=== PATIENT | male | born 1960 | race Caucasian/White ===

== ENCOUNTER 2017-07-12 15:54 | Emergency (ER) | payer OTHER ==
[~2017-07-12] VITALS: Ht 167.6 cm; Wt 83.0 kg
[~2017-07-12 15:54] MED LIST: ADALAT CC90 MG PO; ADULT LOW DOSE81 MG PO; ATENOLOL 50 MG50 M1 PO; BUSPIRONE HCL10 MG PO; CATAPRES0.2 MG PO; COMBIVENT INH; CYCLOBENZAPRINE10 MG PO; DICLOFENAC SODI75 MG PO; IMDUR 30 MG TAB30 M1 PO; LASIX 20 MG TAB20 MG PO; LISINOPRIL20 MG PO; MICARDIS PO; NITROSTAT0.4 MG SL; NORCO 5-325 TA1 EAC1 PO; NORVASC10 MG PO; PLAVIX 75 MG TA75 M1 PO; POTASSIUM CHLO10 ME1 PO; PREDNISONE 10 M10 MG PO; PROMETHAZINE HC25 M1 PO; SIMVASTATIN40 MG PO; TENORMIN50 MG PO; TOPAMAX 25 MG T25 M1 PO; TRIAMCINOLONE A15 G1 TOP
[2017-07-12] MEDS ORDERED: KEFLEX500 M1 PO (16:32)
[2017-07-12] MEDS ORDERED: CIPROFLOXIN HC2.5 M1 OTIC (16:32)
[2017-07-12] MEDS ORDERED: HYDROCODONE-AP1 EAC6 PO (16:32)
[2017-07-12 17:01] VITALS: BP 174/98
== END 2017-07-12 17:01 | disposition home or self-care (01) ==
LOC: M.ERS 15:54
DX: S05.02XA Injury of conjunctiva and corneal abrasion without foreign body, left eye, initial encounter (principal); I10 Essential (primary) hypertension; E78.00 Pure hypercholesterolemia, unspecified; Z90.49 Acquired absence of other specified parts of digestive tract; I25.2 Old myocardial infarction; Z98.890 Other specified postprocedural states; Z86.73 Personal history of transient ischemic attack (TIA), and cerebral infarction without residual deficits; X58.XXXA Exposure to other specified factors, initial encounter; Y93.89 Activity, other specified; Y92.89 Other specified places as the place of occurrence of the external cause; Y99.8 Other external cause status

== ENCOUNTER 2017-07-26 18:07 | Emergency (ER) | payer OTHER ==
[~2017-07-26] VITALS: Ht 167.6 cm; Wt 81.7 kg
[~2017-07-26 18:07] MED LIST changes: +CIPROFLOXIN HC2.5 M1 OTIC; +HYDROCODONE-AP1 EAC6 PO; +KEFLEX500 M1 PO
[2017-07-26 19:27] VITALS: BP 197/121
== END 2017-07-26 19:29 | disposition home or self-care (01) ==
LOC: M.ERS 18:07
DX: R04.0 Epistaxis (principal); I10 Essential (primary) hypertension; E78.00 Pure hypercholesterolemia, unspecified; I25.2 Old myocardial infarction; Z86.73 Personal history of transient ischemic attack (TIA), and cerebral infarction without residual deficits; Z98.890 Other specified postprocedural states

== ENCOUNTER 2017-08-18 11:52 | Emergency (ER) | payer OTHER ==
[~2017-08-18] VITALS: Ht 167.6 cm; Wt 86.2 kg
[2017-08-18 12:17] LABS: ABSOLUTE BASOPHILS 0.1 thou/uL (0.0-0.2); ABSOLUTE EOSINOPHILS 0.2 thou/uL (0.0-0.7); ABSOLUTE LYMPHOCYTES 1.6 thou/uL (0.8-5.3); ABSOLUTE MONOCYTES 0.4 thou/uL (0.0-1.2); ABSOLUTE NEUTROPHILS 3.6 thou/uL (1.6-8.1); BASOPHILS 1.3 %; HEMOGLOBIN 15.2 gm/dL (14.0-18.0); LYMPHOCYTES 27.6 %; MCH 29.2 pg (26.0-34.0); MCHC 34.5 g/dL (28.0-37.0); MCV 84.6 fL (80.0-100.0); MONOCYTES 6.3 %; MPV 8.7 fl. (7.2-11.1); NUCLEATED RBCS 0 /100WBC; PLATELET COUNT* 182 thou/uL (150-400); POLYS 60.8 %; RDW-CV 14.5 % (10.5-14.5); WBC 5.9 thou/uL (4.0-11.0)
[2017-08-18 12:26] LABS: ANION GAP 8 mmol/L (7-16); BUN 16 mg/dL (7-18); CHLORIDE 101 mmol/L (98-107); CO2 31 mmol/L (21-32); CREATININE 1.8 mg/dL (0.6-1.3); GLUCOSE 129 mg/dL (70-99); SODIUM 140 mmol/L (136-145)
[2017-08-18 12:28] LABS: APTT 29.4 Seconds (25.0-31.3); INR 1.1; PROTIME 10.3 Seconds (9.20-11.50)
[2017-08-18 12:45] LABS: ALBUMIN 3.8 g/dL (3.4-5.0); ALKALINE PHOSPHATASE 70 U/L (46-116); CK-MB MASS 0.8 ng/mL (<0.5-3.6); LIPASE 192 U/L (73-393); MAGNESIUM 2.1 mg/dL (1.8-2.4); NT-PRO BRAIN NAT PEPTIDE 1273 pg/mL (<300); SGOT 22 U/L (15-37); SGPT 31 U/L (30-65); TOTAL BILIRUBIN 0.3 mg/dL (<0.1-1.0); TOTAL PROTEIN 7.9 g/dL (6.4-8.2); TROPONIN-I LEVEL <0.06 ng/mL (<0.06)
[2017-08-18 12:47] LABS: POTASSIUM 2.8 mmol/L (3.5-5.1)
[2017-08-18] MEDS ORDERED: POTASSIUM20 PO (13:04)
[2017-08-18 13:34] VITALS: BP 137/89
--- NOTE | 2017-08-19 11:54 | EKG ---
[place] [address] ELECTROCARDIOGRAM REPORT Name: ANA COULTERY Benita Room: [facility]#: [id number] Admission: 08/18/17 Attend Phys: Discharge: 08/18/17 Date of : 58 Report #: [id number] THIS REPORT FOR: //name// [facility] ED Test Date: 2017-08-18 Test Time: 12:02:25 Pat Name: KIERAN COULTER Department: Room: Gender: Youth Probation Officer: Goyo HAYES : 1960 Requested By: Brown Arguelles Order Number: [id number] MD: Norbert Perez Measurements Intervals [employer] Rate: 71 P: 17 NH: 192 QRS: -17 QRSD: 104 T: 164 QT: 420 QTc: 457 Interpretive Statements Sinus rhythm LVH with secondary repolarization abnormality Anterior infarct, old Compared to ECG 04/23/2017 10:00:20 no change Electronically Signed On 08-19-2017 11:54:12 [employer] by Norbert Perez [email or web address] <ELECTRONICALLY SIGNED> By: Norbert Perez MD, [facility] 08/19/17 1154 1202 01 Norbert Perez MD, FACC /EPI
== END 2017-08-18 13:34 | disposition home or self-care (01) ==
LOC: M.ERS 11:52
PROVIDERS: Emergency Medicine
DX: I10 Essential (primary) hypertension (principal); E87.6 Hypokalemia; E78.00 Pure hypercholesterolemia, unspecified; Z90.49 Acquired absence of other specified parts of digestive tract; Z90.89 Acquired absence of other organs; Z86.73 Personal history of transient ischemic attack (TIA), and cerebral infarction without residual deficits